=== PATIENT | male | born 1960 | race Two or more races ===

== ENCOUNTER 2021-02-20 17:29 | Emergency (ER) | payer OTHER ==
[~2021-02-20] VITALS: Ht 165.1 cm; Wt 78.0 kg
[2021-02-20] MEDS ORDERED: SODIUM CHLORIDE 0.9% 1,000 ML IV ONE (18:00)
[2021-02-20 20:52] LABS: HEMATOCRIT. 39.6 % (42.0-52.0); HEMOGLOBIN. 13.4 g/dL (14.0-18.0); MEAN CORPUSCULAR HEMOGLOBIN 30.8 pg (28.0-32.0); MEAN CORPUSCULAR VOLUME 90.8 fL (80.0-94.0); MEAN PLATELET VOLUME 8.3 fl (7.4-10.4); PLATELET 204 x1000/uL (130-400); RED BLOOD CELL COUNT 4.36 mill/uL (4.7-6.1); RED CELL DISTRIBUTION WIDTH 15.3 % (11.6-14.6)
[2021-02-20 20:57] LABS: CHLORIDE 104 mEq/L (98-107)
[2021-02-20 21:17] LABS: ETHANOL BLOOD 331 mg/dL
[2021-02-20 21:23] LABS: PLATELET ESTIMATE NORMAL
[2021-02-20 23:33] VITALS: BP 129/88
== END 2021-02-20 23:37 | disposition home or self-care (01) ==
LOC: ER 17:29
DX: R56.9 Unspecified convulsions (principal)
CPT/HCPCS: 36415; 70450; 71045; 80053; 80185; 80320; 84484; 85025; 93005; 96360; 99285; J7030; G0480